=== PATIENT | male | born 2000 | race Caucasian/White ===

== ENCOUNTER 2019-11-11 13:57 | Emergency (ER) | payer MEDICAID, OTHER ==
[2019-11-11] MEDS ORDERED: Sodium Chloride 0.9% 10 ML Syringe FLUSH PRN (14:08)
[2019-11-11] MEDS ORDERED: HYDROmorphone 1 MG/ML Syringe IVPUSH ONE (14:08)
[2019-11-11] MEDS ORDERED: HYDROmorphone 0.5 MG/0.5 ML Syringe IVPUSH ONE ×2 (15:12→15:38)
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
--- NOTE | 2019-11-13 09:16 | CR ---
Left wrist: Three views of the left wrist were obtained. Comparison: No previous wrist study. Fractures are noted within the distal diaphysis of the ulna and radius. Radial fracture shows displacement by over a shaft width as well as apex anterior angulation of both fractures. Soft tissue swelling is noted. No additional abnormality is appreciated on this exam. Impression: 1. Angulated and displaced fractures within the distal left diaphysis of the radius and ulna. Diagnostic code #3 This report was dictated in [place] Standard Time
== END 2019-11-11 16:00 ==
LOC: JD.ED 13:57
DX: S52.502A Unspecified fracture of the lower end of left radius, initial encounter for closed fracture (principal); S52.602A Unspecified fracture of lower end of left ulna, initial encounter for closed fracture; V80.018A Animal-rider injured by fall from or being thrown from other animal in noncollision accident, initial encounter
CPT/HCPCS: 73110; 96374; 96376; 99285; J1170